=== PATIENT | female | born 1965 | race Caucasian/White ===

== ENCOUNTER 2018-06-25 22:36 | Emergency (ER) | payer OTHER ==
[~2018-06-25] VITALS: Ht 162.6 cm; Wt 72.6 kg
[~2018-06-25 22:36] MED LIST: ELAVIL25 MG PO; Z.0.TOPAMAX25 MG PO
--- OUTSIDE RECORDS SUMMARY | 2018-06-25 22:38 | XMS REPORT ---
Author Author [facility] Address Unknown Phone Unavailable Care Team Providers Care Merchandise Presentation Manager Name Role Phone Unavailable Unavailable Payers Payer Name Policy Type Policy Number Effective Date Expiration Date Problems This patient has no known problems. Allergies, Adverse Reactions, Alerts Allergy Name Allergy Type Status Severity Reaction(s) Onset Date Inactive Date Treating Clinician Comments No Known Allergies DA Active U 2018-02-09 00:00:00 Medications This patient has no known medications.
--- NOTE | 2018-06-25 23:30 | Diagnostic Imaging Report ---
FOOT 3 VIEW RT - HOPD HISTORY: Patient kicked concrete step with right foot. Right toe pain.. COMPARISON: None available. FINDINGS: Bones: No acute displaced fracture. Small plantar and posterior calcaneal enthesophytes. Osseous alignment is within normal limits. Joints: The joint spaces are well-maintained. Soft tissues: The soft tissues appear unremarkable. IMPRESSION: No acute radiographic abnormality. Signed by: DR. Kurt Rhodes MD on 06/25/2018 11:27 PM
[2018-06-25 23:33] VITALS: BP 124/86
== END 2018-06-25 23:36 | disposition home or self-care (01) ==
LOC: FSED 22:36
DX: S93.511A Sprain of interphalangeal joint of right great toe, initial encounter (principal); W22.01XA Walked into wall, initial encounter; Y92.008 Other place in unspecified non-institutional (private) residence as the place of occurrence of the external cause; E03.9 Hypothyroidism, unspecified
CPT/HCPCS: 99282

== ENCOUNTER 2018-09-29 19:35 | Emergency (ER) | payer OTHER ==
[~2018-09-29] VITALS: Ht 162.6 cm; Wt 73.9 kg
== END 2018-09-29 20:38 | disposition home or self-care (01) ==
LOC: FSED 19:35
DX: R30.0 Dysuria (principal); N30.91 Cystitis, unspecified with hematuria
CPT/HCPCS: 81003; 99283